=== PATIENT | male | born 1930 ===

== ENCOUNTER 2020-09-22 15:47 | Emergency (ER) | payer OTHER ==
[~2020-09-22] VITALS: Ht 175.3 cm; Wt 79.4 kg
== END 2020-09-22 23:03 | disposition home or self-care (01) ==
LOC: ER 15:47
DX: M51.37 Other intervertebral disc degeneration, lumbosacral region (principal); M48.07 Spinal stenosis, lumbosacral region; M45.6 Ankylosing spondylitis lumbar region; M54.5 Low back pain